=== PATIENT | male | born 1970 | race African-American/Black ===

== ENCOUNTER 2024-12-08 02:48 | Emergency (ER) | payer OTHER, MEDICAID ==
[~2024-12-08] VITALS: Ht 182.9 cm; Wt 109.0 kg
[2024-12-08 02:57] VITALS: BP 185/100; PULSE 73; RESP 16; TEMP 36.7; O2SAT 100
== END 2024-12-08 03:51 ==
LOC: ER 02:48
DX: K42.9 Umbilical hernia without obstruction or gangrene (principal); M54.50 Low back pain, unspecified; L25.9 Unspecified contact dermatitis, unspecified cause; I10 Essential (primary) hypertension
CPT/HCPCS: 99283